=== PATIENT | female | born 1965 | race Caucasian/White ===

== ENCOUNTER 2018-05-24 04:40 | Emergency (ER) | payer MEDICAID, OTHER ==
[~2018-05-24] VITALS: Ht 162.6 cm; Wt 65.8 kg
[~2018-05-24 04:40] MED LIST: BENA20TA88; METF500T6
[2018-05-24 04:45] VITALS: BP 158/72
--- NOTE | 2018-05-24 04:45 | NUR ---
PT PRESENTS TO ED WITH N/V/D, THOMAS, AND FEVER X2 DAYS 11/30 PAIN. AFEBRILE AT THIS TIME 98.9 ORAL. A&OX4. NO DIZZINESS. VSS. POSITIONED IN BED FOR COMFORT. ER MD AWARE. CONTINUE TO MONITOR.
--- NOTE | 2018-05-24 04:45 | NUR ---
TO BED # 11 AMBULATORY, REPORT GIVEN TO ELIDA JIMÉNEZ
--- NOTE | 2018-05-24 07:15 | NUR ---
PT. RESTING COMFORTABLY IN BED , RR EVEN AND UNLABORED. VSS AT THIS TIME. WILL CONTINUE TO MONITOR.
[2018-05-24] MEDS ORDERED: DIPHENOXYLATE /ATROPINE 2.5 MG TAB PO ONE (07:25)
[2018-05-24] MEDS ORDERED: ONDANSETRON 4 MG ODT PO ONE (07:25)
[2018-05-24 08:05] VITALS: BP 114/67
--- NOTE | 2018-05-24 08:05 | NUR ---
Patient discharged with v/s stable. Written and verbal after care instructions given and explained. Patient alert, oriented and verbalized understanding of instructions. Ambulatory with steady gait. All questions addressed prior to discharge. ID band removed. Patient advised to follow up with PMD. Rx of ZOFRAN, LOMOTIL given. Patient educated on indication of medication including possible reaction and side effects. Opportunity to ask questions provided and answered.
== END 2018-05-24 08:05 | disposition home or self-care (01) ==
LOC: MED 04:40
DX: T62.8X1A Toxic effect of other specified noxious substances eaten as food, accidental (unintentional), initial encounter (principal); E11.9 Type 2 diabetes mellitus without complications; I10 Essential (primary) hypertension; Z88.0 Allergy status to penicillin; Z79.899 Other long term (current) drug therapy; Y92.89 Other specified places as the place of occurrence of the external cause
CPT/HCPCS: 82948; 99283; S0119